=== PATIENT | male | born 1990 | race Caucasian/White ===

== ENCOUNTER 2017-10-01 22:45 | Observation (INO) | payer BC ==
[~2017-10-01] VITALS: Ht 182.9 cm; Wt 93.5 kg
[2017-10-01] MEDS ORDERED: ondansetron/PF 4mg/2ml inj IV ONE (23:10)
[2017-10-01] MEDS ORDERED: morphine 2 MG/ML inj. syringe IV ONE (23:10)
[2017-10-01] MEDS ORDERED: normal saline 1000ML IV soln IVB ONE (23:10)
[2017-10-01 23:32] LABS: BASOPHILS # (AUTO) 0.1 X10'3 (0-0.2); EOSINOPHILS # (AUTO) 0.3 X10'3 (0-0.9); HEMATOCRIT 47.4 % (42.0-52.0); HEMOGLOBIN 15.9 g/dl (14.0-17.9); LYMPHOCYTES % (AUTO) 13.6 % (21-51); MEAN CORPUSCULAR HEMOGLOBIN 29.2 PG (27.0-31.0); MEAN CORPUSCULAR HGB CONC 33.6 % (33.0-36.5); MEAN CORPUSCULAR VOLUME 86.9 FL (78-98); MEAN PLATELET VOLUME 7.5 FL (7.4-10.4); MONOCYTES # (AUTO) 0.6 X10'3 (0-0.9); MONOCYTES % (AUTO) 3.8 % (2-12); NEUTROPHILS % (AUTO) 79.6 % (42-75); PLATELET COUNT 354 X10'3 (140-440); RED BLOOD COUNT 5.45 X10'6 (4.70-6.10); RED CELL DISTRIBUTION WIDTH 13.2 % (11.5-14.5); WHITE BLOOD COUNT 15.1 X10'3 (4.5-11.0)
[2017-10-01 23:38] LABS: PARTIAL THROMBOPLASTIN TIME 27 SECONDS (22-32); PROTHROMBIN TIME 10.4 SECONDS (9.0-12.0)
[2017-10-01 23:43] LABS: ALANINE AMINOTRANSFERASE 72 U/L (12-78); ALBUMIN 4.8 G/DL (3.4-5.0); ALBUMIN/GLOBULIN RATIO 1.4 (1.1-1.5); ALKALINE PHOSPHATASE 99 IU/L (46-116); ANION GAP 10 (8-16); ASPARTATE AMINO TRANSFERASE 30 U/L (10-37); BILIRUBIN,TOTAL 0.4 MG/DL (0.1-1.0); BLOOD UREA NITROGEN 15 MG/DL (7-18); BUN/CREATININE RATIO 13.6 (5.4-32.0); CALCIUM 9.6 MG/DL (8.5-10.1); CHLORIDE 102 MMOL/L (99-107); GLUCOSE 115 MG/DL (70-104); LIPASE 97 U/L (73-393); POTASSIUM 3.6 MMOL/L (3.5-5.1); SODIUM 141 MMOL/L (135-145); TOTAL CARBON DIOXIDE 29.5 MMOL/L (24-32); TOTAL PROTEIN 8.3 G/DL (6.4-8.2); eGFR 82 ML/MIN
[2017-10-02] VITALS (15 sets, daily range): BP systolic 94–147; BP diastolic 50–98
[2017-10-02] MEDS ORDERED: piperacillin/tazo 3.375gm/50ml 50 ML IV ONE (00:15)
[2017-10-02 00:19] LABS: CLARITY,URINE Clear (Clear); COLOR,URINE Yellow (Yellow); GLUCOSE, URINE Negative (Neg); KETONES,URINE Negative (Neg); LEUKOCYTE ESTERASE ,URINE Negative (Neg); NITRITES, URINE Negative (Neg); OCCULT BLOOD,URINE Negative (Neg); PH,URINE 6.5 (4.8-8.0); PROTEIN,URINE Negative (Neg); UA COLLECTION TYPE VOIDED; UROBILINOGEN,URINE 0.2 E.U/dL (0.2-1.0)
[2017-10-02] MEDS ORDERED: ondansetron/PF 4mg/2ml inj IV PRN ×2 (01:25→13:45)
[2017-10-02] MEDS: normal saline 1000ml 1,000 ML IV SCH ×2 (02:16→11:29)
[2017-10-02] MEDS: morphine 2 MG/ML inj. syringe IV PRN ×3 (02:18→14:04)
[2017-10-02] MEDS ORDERED: lactobacillus rhamnosus 10,000 MMU CELLS/CAPSULE PO SCH (07:30)
[2017-10-02] MEDS: piperacillin/tazo 3.375gm/50ml 50 ML IV SCH ×2 (08:34→15:58)
[2017-10-02] MEDS ORDERED: NO HOME MEDS (10:09)
[2017-10-02] MEDS ORDERED: BUPIVAcaine/PF 2.5 mg/ml (0.25%) 30ml vial ONE (12:09)
[2017-10-02] MEDS ORDERED: fentaNYL/PF 50MCG/1 ML 2ML syringe ONE (12:44)
[2017-10-02] MEDS ORDERED: midazolam 2 mg/2 ml injection ONE (12:44)
[2017-10-02] MEDS ORDERED: ePHEDrine 50MG/ML INJ. ONE (12:45)
[2017-10-02] MEDS ORDERED: sevoflurane 250ml liquid IH ONE (12:45)
[2017-10-02] MEDS ORDERED: ondansetron/PF 4mg/2ml inj ONE (13:16)
[2017-10-02] MEDS ORDERED: rocuronium 10mg/ml inj IV ONE (13:16)
[2017-10-02] MEDS ORDERED: LIDOcaine 2% (20mg/ml) 5ml vial ONE (13:16)
[2017-10-02] MEDS ORDERED: propofol inj 20 ML IV ONE (13:16)
[2017-10-02] MEDS ORDERED: dexamethasone sod phosphate 4mg/ml inj. ONE (13:16)
[2017-10-02] MEDS ORDERED: neostigmine methylsulfate 1 MG/ML 10ml vial ONE (13:16)
[2017-10-02] MEDS ORDERED: glycopyrrolate 0.2mg/ml inj ONE (13:16)
[2017-10-02] MEDS ORDERED: ringers solution, lacted 1,000 ML IV SCH (13:42)
[2017-10-02] MEDS ORDERED: morphine 2 MG/ML inj. syringe IV PRN ×2 (13:45)
[2017-10-02] MEDS ORDERED: meperidine/PF 25mg/ml syringe IV PRN ×3 (13:45)
[2017-10-02] MEDS ORDERED: proCHLORperazine 10 MG/2 ml inj IV PRN (13:45)
[2017-10-02] MEDS ORDERED: HYDROcodone/acetaminophen 10/325mg tab PO PRN (15:40)
[2017-10-02] MEDS ORDERED: HYDR-565 PO (15:53)
== END 2017-10-02 17:00 | disposition home or self-care (01) ==
LOC: ER 22:46 → ED HOLD 10-02 01:23 → ORTHO 4S 10-02 01:50 → SUR 3N 10-02 10:36
PROVIDERS: ADMIT Internal Medicine; ATTEND Internal Medicine
DX: K35.80 Unspecified acute appendicitis (principal); Z87.891 Personal history of nicotine dependence
CPT/HCPCS: 36415; 44950; 74176; 80053; 81003; 83690; 85025; 85610; 85730; 87070; 96365; 96366; 96375; 96376; 99285; A4315; G0378; J1100; J2001; J2175; J2250; J2270; J2405; J2543; J2704; J2710; J3010; J3490; J7030; J7120; A7000